=== PATIENT | female | born 1980 | race Caucasian/White ===

== ENCOUNTER 2021-04-24 01:17 | Emergency (ER) | payer BC ==
[~2021-04-24] VITALS: Ht 160 cm; Wt 72.7 kg
[2021-04-24 01:40] VITALS: BP 160/105
== END 2021-04-24 03:55 | disposition left against medical advice (07) ==
LOC: ER 01:17
DX: S61.411A Laceration without foreign body of right hand, initial encounter (principal); Z53.21 Procedure and treatment not carried out due to patient leaving prior to being seen by health care provider; Y28.8XXA Contact with other sharp object, undetermined intent, initial encounter; Y93.89 Activity, other specified; Y92.89 Other specified places as the place of occurrence of the external cause; Y99.8 Other external cause status